=== PATIENT | female | born 1935 | race Caucasian/White ===

== ENCOUNTER 2017-01-22 12:06 | Inpatient (IN) | payer OTHER ==
--- NOTE | 2017-01-22 12:26 | PDOC ---
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 The son reports that the patient was not answering her front door today and the family became worried and brought her to the ED for further evaluation. The son states that similar episodes of the sort have happened in the past, usually around this time when the weather gets hotter. The patient has not ate breakfast this morning but did eat an early dinner last night. The patient denies chest pain, shortness of breath, headache and dizziness. Denies fever, chills, diarrhea and constipation. Denies dysuria, frequency, urgency and hematuria. Allergies: Aspirin, penicillin Past surgical history: None reported Social history: No alcohol, tobacco or drug use reported PMD - Dr. Len Tavarez <Braxton Slade - Last Filed: 01/22/17 13:56> - General History Source: Patient, Old Records Exam Limitations: No Limitations <Tomasa Pabon - Last Filed: 01/22/17 15:28> - General Chief Complaint: Weakness Stated Complaint: Weakness Time Seen by Provider: 01/22/17 12:25 Past History <Braxton Slade - Last Filed: 01/22/17 13:56> - Past Medical History Dementia: Yes GI Disorders: Yes (gerd) HTN: Yes - Psycho/Social/Smoking Cessation Hx Anxiety: No Suicidal Ideation: No Smoking History: Never smoked Have you smoked in the past 12 months: No Information on smoking cessation initiated: No Hx Alcohol Use: No Drug/Substance Use Hx: No Substance Use Type: None <Tomasa Pabon - Last Filed: 01/22/17 15:28> - Past Medical History Allergies/Adverse Reactions: Allergies Allergy/AdvReac Type Severity Reaction Status Date / Time aspirin Allergy Severe Hives Verified 01/22/17 12:16 Penicillins Allergy Hives Verified 01/22/17 12:16 Home Medications: Ambulatory Orders Losartan Potassium [Cozaar -] 25 mg PO DAILY 01/22/17 Meclizine HCl [Bonine] 25 mg PO DAILY 01/22/17 Omeprazole 40 mg PO DAILY 01/22/17 Review of Systems - Review of Systems Able to Perform ROS?: Yes Comments:: 01/22/17 12:40 GENERAL/CONSTITUTIONAL: (+) Generalized weakness. No fever or chills. HEAD, EYES, EARS, NOSE AND THROAT: No change in vision. No ear pain or discharge. No sore throat. CARDIOVASCULAR: No chest pain or shortness of breath RESPIRATORY: No cough, wheezing, or hemoptysis. GASTROINTESTINAL: (+) Nausea and vomiting. No diarrhea or constipation. GENITOURINARY: No dysuria, frequency, or change in urination. MUSCULOSKELETAL: No joint or muscle swelling or pain. No neck or back pain. SKIN: No rash NEUROLOGIC: No headache, vertigo, loss of consciousness, or change in strength/ sensation. ENDOCRINE: No increased thirst. No abnormal weight change HEMATOLOGIC/LYMPHATIC: No anemia, easy bleeding, or history of blood clots. ALLERGIC/IMMUNOLOGIC: No hives or skin allergy. <Braxton Slade - Last Filed: 01/22/17 13:56> *Physical Exam - Vital Signs Last Vital Signs Temp Pulse Resp BP Pulse Ox 83 20 207/97 91 L 01/22/17 12:16 01/22/17 12:16 01/22/17 12:16 01/22/17 12:16 - Physical Exam Comments: 01/22/17 12:42 GENERAL: Awake, alert, and fully oriented but mildly lethargic, in no acute distress HEAD: No signs of trauma, normocephalic, atraumatic EYES: PERRLA, EOMI, sclera anicteric, conjunctiva clear ENT: Auricles normal inspection, hearing grossly normal, nares patent, oropharynx clear without exudates. Moist mucosa NECK: Normal ROM, supple, no lymphadenopathy, JVD, or masses LUNGS: (+) Bibasilar crackles. No distress, speaks full sentences. HEART: Regular rate and rhythm, normal S1 and S2, no murmurs, rubs or gallops, peripheral pulses normal and equal bilaterally. ABDOMEN: Soft, nontender, normoactive bowel sounds. No guarding, no rebound. No masses EXTREMITIES: Normal inspection, Normal range of motion, no edema. No clubbing or cyanosis. NEUROLOGICAL: Cranial nerves II through XII grossly intact. Normal speech, normal gait, no focal sensorimotor deficits SKIN: Warm, Dry, normal turgor, no rashes or lesions noted. <Braxton Slade - Last Filed: 01/22/17 13:56> - Vital Signs Last Vital Signs Temp Pulse Resp BP Pulse Ox 83 20 207/97 91 L 01/22/17 12:16 01/22/17 12:16 01/22/17 12:16 01/22/17 12:16 <PepperTomasa - Last Filed: 01/22/17 15:28> ED Treatment Course - LABORATORY CBC & Chemistry Diagram: 01/22/17 12:43 01/22/17 12:43 - RADIOLOGY Radiograph Interpretation: 01/22/17 13:56 Chest X-Ray Reviewed by: Dr. Ben Power Impression: Limited examination with no acute intrathoracic abnormality seen. <Braxton Slade - Last Filed: 01/22/17 13:56> - LABORATORY CBC & Chemistry Diagram: 01/22/17 12:43 01/22/17 12:43 <Christina Pabonfany - Last Filed: 01/22/17 15:28> Medical Decision Making - Medical Decision Making 01/22/17 12:50 81-year-old female with history of hypertension, hyperlipidemia, CVA with no residual deficits who presents the emergency department with her son with complaints of nausea and generalized weakness found to be hypoxic to 91% on room air. Differential diagnosis includes but is not limited to: Pneumonia, UTI , intracranial process, electrolyte abnormality, dehydration, toxic/metabolic derangement, ACS. Plan: 1. Labs 2. EKG 3. IV fluids for hydration 4. Observe and reevaluate 01/22/17 15:24 Addendum: Labs were reviewed and are noted in the EMR. The WBC is elevated as is the lactate. CXR and CT abdomen and pelvis is negative. CT head is pending. The patient has been cultured and given Levaquin and vancomycin (she is PCN allergic). Will admit to medicine for IV antibiotics and monitoring of oxygen saturation and lactate levels. <Tomasa Pabon - Last Filed: 01/22/17 15:28> *DC/Admit/Observation/Transfer - Attestations Scribe Attestion: 01/22/17 12:42 Documentation prepared by Braxton Slade, acting as certified medical asst for Tomasa Pabon MD <Braxton Slade - Last Filed: 01/22/17 13:56> - Discharge Dispostion Admit: Yes - Attestations Physician Attestion: 01/22/17 12:52 I, Dr. Tomasa Pabon, attest that the scribes documentation that appears above has been prepared under my direction and personally reviewed by me in its entirety. I confirmed that the note above accurately reflects all work, treatment, procedures, and medical decision-making performed by me. <Tomasa Pabon - Last Filed: 01/22/17 15:28> Diagnosis at time of Disposition: Sepsis, Nausea and vomiting - Discharge Dispostion Condition at time of disposition: Stable - Referrals Referrals: Len Tavarez MD [Primary Care Provider] -
[2017-01-22] MEDS ORDERED: SODIUM CHLORIDE 1,000 ML IV STA ×2 (12:39→13:49)
[2017-01-22] MEDS ORDERED: ONDANSETRON 4 MG/2 ML VIAL ONE (12:52)
[2017-01-22] MEDS ORDERED: ONDANSETRON 4 MG/2 ML VIAL IVPUSH ONE (12:52)
[2017-01-22 12:55] LABS: BASOPHIL 0.2 % (0-2.0); EOSINOPHIL 0.2 % (0-4.5); MCH 29.9 pg (25.7-33.7); MCHC 32.9 g/dl (32.0-36.0); MEAN CELL VOLUME 90.9 fl (80-96); NEUTROPHILS 71.3 % (42.8-82.8); PLATELET COUNT 223 K/MM3 (134-434); RDW 12.9 % (11.6-15.6); WHITE BLOOD COUNT 10.2 K/mm3 (4.0-10.0)
[2017-01-22 13:05] LABS: VENOUS BLOOD GAS HCO3 23.4 meq/L (19-25); VENOUS PH 7.33 (7.32-7.42)
[2017-01-22 13:16] LABS: INR 1.06 (0.82-1.09); PROTHROMBIN TIME (PATIENT) 11.7 SEC (9.98-11.88)
[2017-01-22 13:18] LABS: ACTIVATED PTT 33.3 SECONDS (26.9-34.4)
[2017-01-22 13:23] LABS: ALBUMIN 3.8 g/dl (3.4-5.0); ANION GAP 11 (8-16); BILIRUBIN,TOTAL 0.6 mg/dL (0.2-1.0); CO2 23 mmol/L (21-32); CREATININE 0.9 mg/dL (0.55-1.02); GLUCOSE,RANDOM 165 mg/dL (74-106); SGPT/ALT 43 U/L (12-78); TOT PROT 7.8 g/dl (6.4-8.2)
[2017-01-22 13:26] LABS: URINE APPEARANCE CLEAR; URINE BILIRUBIN NEGATIVE (NEGATIVE); URINE BLOOD NEGATIVE (NEGATIVE); URINE COLOR STRAW; URINE GLUCOSE (UA) 2+ (NEGATIVE); URINE KETONE 1+ (NEGATIVE); URINE LEUK ESTERASE NEGATIVE (NEGATIVE); URINE NITRITE NEGATIVE (NEGATIVE); URINE UROBILINOGEN NEGATIVE E.U./dl (0.2-1.0)
[2017-01-22 13:27] LABS: ALK PHOS 134 U/L (45-117); TROPONIN I < 0.02 ng/ml (0.00-0.05); URINE PROTEIN 1+ (NEGATIVE)
[2017-01-22 13:28] LABS: SGOT/AST 36 U/L (15-37)
[2017-01-22 13:29] LABS: URINE BACTERIA RARE /hpf (NONE SEEN); URINE HYALINE CAST 3 /lpf; URINE MUCUS RARE; URINE RBC 1 /hpf (0-3); URINE WBC 1 /hpf (3-5)
[2017-01-22] MEDS ORDERED: VANCOMYCIN 1,000 MG in DEXTROSE 5%-WATER - 250 ML IVPB ONE (13:48)
[2017-01-22] MEDS ORDERED: LEVOFLOXACIN 750 MG IVPB 150 ML IVPB ONE ×2 (13:48→16:56)
[2017-01-22] MEDS ORDERED: VANCOMYCIN 1 GRAM (PRE-DOCKED) 250 ML IVPB ONE (14:47)
[2017-01-22] MEDS ORDERED: ACETAMINOPHEN 500 MG TABLET (FP) PO ONE (16:49)
[2017-01-22] MEDS ORDERED: ACETAMINOPHEN 325 MG TABLET (FP) ONE (16:55)
[2017-01-22] MEDS ORDERED: ASPIRIN 325 MG ENTERIC COATED TABLET (FP) PO ONE (17:00)
[2017-01-22] MEDS ORDERED: ASPIRIN 325 MG ENTERIC COATED TABLET (FP) PO SCH (17:00)
--- NOTE | 2017-01-22 17:08 | HP ---
CHIEF COMPLAINT: Altered mental status PCP: Dr. Len Tavarez HISTORY OF PRESENT ILLNESS: Patient is an 81 year old female wit gee PMHx of CVA with no residual weakness, HTN, GERD who was BIBA after being found by a friend with altered mental status associated with nausea and vomiting. As per patients daughter, her mother was feeling lightheaded and dizzy but did not fall down. However, when she was found, patient had urinated on herself for the first time. She also reports that these symptoms usually occur in the summer time when the weather is warm. Patient also reports feeling weak with a headache because she has not eaten anything today due to the nausea and vomiting. Patient's daughter reports her mothers AMS resolved and is back to baseline. Otherwise, patient denies fever, chills, chest pain, palpitations, shortness of breath, visual changes, diarrhea , hematuria, frequency, urgency. ER course was notable for: (1) IV fluids (2) Levaquin (3) Lactic Acid 2.8 Recent Travel: Denies PAST MEDICAL HISTORY: HTN, GERD, CVA PAST SURGICAL HISTORY: Denies Social History: Smoking: Denies Alcohol: Denies Drugs: Denies Family History: Non-contributory Allergies: Patient and family state no hives with Aspirin Penicillins Allergy (Verified 01/22/17 12:16) Hives HOME MEDICATIONS: Home Medications Medication Instructions Recorded Losartan Potassium [Cozaar -] 25 mg PO DAILY 01/22/17 Meclizine HCl [Bonine] 25 mg PO DAILY 01/22/17 Omeprazole 40 mg PO DAILY 01/22/17 REVIEW OF SYSTEMS CONSTITUTIONAL: generalized weakness Absent: fever, chills, diaphoresis, malaise, loss of appetite, weight change HEENT: Absent: rhinorrhea, nasal congestion, throat pain, throat swelling, difficulty swallowing, mouth swelling, ear pain, eye pain, visual changes CARDIOVASCULAR: lightheadedness Absent: chest pain, syncope, palpitations, irregular heart rate, peripheral edema RESPIRATORY: Absent: cough, shortness of breath, dyspnea with exertion, orthopnea, wheezing, stridor, hemoptysis GASTROINTESTINAL: nausea, vomiting Absent: abdominal pain, abdominal distension, diarrhea, constipation, melena, hematochezia GENITOURINARY: Absent: dysuria, frequency, urgency, hesitancy, hematuria, flank pain, genital pain MUSCULOSKELETAL: Absent: myalgia, arthralgia, joint swelling, back pain, neck pain SKIN: Absent: rash, itching, pallor HEMATOLOGIC/IMMUNOLOGIC: Absent: easy bleeding, easy bruising, lymphadenopathy, frequent infections ENDOCRINE: Absent: unexplained weight gain, unexplained weight loss, heat intolerance, cold intolerance NEUROLOGIC: headache, dizziness, unsteady gait, mental status changes, bladder incontinence Absent: focal weakness or paresthesias, seizure PSYCHIATRIC: Absent: anxiety, depression, suicidal or homicidal ideation, hallucinations. PHYSICAL EXAMINATION Vital Signs - 24 hr 01/22/17 01/22/17 01/22/17 15:30 15:59 16:02 Temperature 96.7 F L 97.4 F L Pulse Rate [ 82 Left Radial] Respiratory 18 Rate Blood Pressure 158/82 Blood Pressure 158/82 [Right Arm] O2 Sat by Pulse 98 Oximetry (%) GENERAL: Awake, alert, and fully oriented, in no acute distress. HEAD: Normal with no signs of trauma. EYES: Pupils equal, round and reactive to light, extraocular movements intact, sclera anicteric, conjunctiva clear. EARS, NOSE, THROAT: Moist mucous membranes. NECK: Supple without lymphadenopathy or JVD. No Bruits appreciated LUNGS: Breath sounds equal, clear to auscultation bilaterally. No wheezes, and no crackles. No accessory muscle use. HEART: Regular rate and rhythm, normal S1 and S2 without murmur, rub or gallop. ABDOMEN: Soft, nontender, not distended, normoactive bowel sounds, no guarding, no rebound, no masses. UPPER EXTREMITIES: No peripheral edema. LOWER EXTREMITIES: No calf tenderness. No peripheral edema. NEUROLOGICAL: Cranial nerves II-XII intact. Normal speech. Motor strength 5/5, sensory intact PSYCHIATRIC: Cooperative. Good eye contact. Appropriate mood and affect. SKIN: Warm, dry, normal turgor, no rashes or lesions noted, normal capillary refill. Laboratory Results - last 24 hr 01/22/17 01/22/17 01/22/17 12:43 12:43 12:43 WBC 10.2 H RBC 4.77 D Hgb 14.3 D Hct 43.3 D MCV 90.9 MCHC 32.9 RDW 12.9 Plt Count 223 D MPV 8.0 Neutrophils % 71.3 D Lymphocytes % 22.3 D Monocytes % 6.0 Eosinophils % 0.2 Basophils % 0.2 INR 1.06 PTT (Actin FS) 33.3 VBG pH POC VBG pCO2 POC VBG pO2 Mixed VBG HCO3 Sodium Potassium Chloride Carbon Dioxide Anion Gap BUN Creatinine Creat Clearance w eGFR Random Glucose Lactic Acid Calcium Total Bilirubin AST ALT Alkaline Phosphatase Creatine Kinase Troponin I B-Natriuretic Peptide Total Protein Albumin Lipase Urine Color Straw Urine Appearance Clear Urine pH 6.0 Urine Protein 1+ H Urine Glucose (UA) 2+ H Urine Ketones 1+ H Urine Blood Negative Urine Nitrite Negative Urine Bilirubin Negative Urine Urobilinogen Negative Ur Leukocyte Esterase Negative Urine RBC 1 Urine WBC 1 Ur Epithelial Cells Rare Urine Bacteria Rare Hyaline Casts 3 Urine Mucus Rare Blood Type Antibody Screen 01/22/17 01/22/17 01/22/17 12:43 12:43 12:43 WBC RBC Hgb Hct MCV MCHC RDW Plt Count MPV Neutrophils % Lymphocytes % Monocytes % Eosinophils % Basophils % INR PTT (Actin FS) VBG pH 7.33 POC VBG pCO2 46.2 POC VBG pO2 44.3 Mixed VBG HCO3 23.4 Sodium 143 Potassium 3.7 Chloride 109 H Carbon Dioxide 23 D Anion Gap 11 BUN 13 D Creatinine 0.9 D Creat Clearance w eGFR 59.80 Random Glucose 165 H D Lactic Acid 2.8 H* Calcium 10.0 Total Bilirubin 0.6 D AST 36 ALT 43 Alkaline Phosphatase 134 H D Creatine Kinase 79 Troponin I < 0.02 B-Natriuretic Peptide Total Protein 7.8 D Albumin 3.8 D Lipase 96 Urine Color Urine Appearance Urine pH Urine Protein Urine Glucose (UA) Urine Ketones Urine Blood Urine Nitrite Urine Bilirubin Urine Urobilinogen Ur Leukocyte Esterase Urine RBC Urine WBC Ur Epithelial Cells Urine Bacteria Hyaline Casts Urine Mucus Blood Type Antibody Screen 01/22/17 01/22/17 01/22/17 12:43 15:56 17:30 WBC RBC Hgb Hct MCV MCHC RDW Plt Count MPV Neutrophils % Lymphocytes % Monocytes % Eosinophils % Basophils % INR PTT (Actin FS) VBG pH POC VBG pCO2 POC VBG pO2 Mixed VBG HCO3 Sodium Potassium Chloride Carbon Dioxide Anion Gap BUN Creatinine Creat Clearance w eGFR Random Glucose Lactic Acid 1.9 Calcium Total Bilirubin AST ALT Alkaline Phosphatase Creatine Kinase Troponin I B-Natriuretic Peptide 117.09 Total Protein Albumin Lipase Urine Color Urine Appearance Urine pH Urine Protein Urine Glucose (UA) Urine Ketones Urine Blood Urine Nitrite Urine Bilirubin Urine Urobilinogen Ur Leukocyte Esterase Urine RBC Urine WBC Ur Epithelial Cells Urine Bacteria Hyaline Casts Urine Mucus Blood Type O NEGATIVE Antibody Screen Negative Chest X-ray (01/22/17): There are increased markings in lungs but no evidence of consolidation, heart failure or pleural effusion is seen. IMPRESSION: Limited examination with no acute intrathoracic abnormality seen. Abdominal CT (01/22/17): The liver, spleen, pancreas, adrenal glands and kidneys demonstrate no gross abnormalities. The gallbladder is clear. There is no evidence of intra-abdominal or retroperitoneal lymphadenopathy or fluid collections. There is no evidence of pneumoperitoneum, bowel obstruction or intra-abdominal abscess. There is no CT evidence of acute appendicitis. There is moderate diverticulosis of the sigmoid colon with no CT evidence of acute diverticulitis. Examination of the pelvis demonstrates no evidence of pelvic masses, fluid collections or lymphadenopathy. The uterus is retroverted with an apparent posterior fundal fibroid. There is no evidence of acute bony abnormalities. Scoliosis and degenerative arthritis of the lumbosacral spine is also noted. Head CT (01/22/17): 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 Otherwise normal noncontrast CT of the brain except for involutional and periventricular white matter changes. ASSESSMENT/PLAN: Patient is an 81 year old female with a PMHx of CVA (no residual weakness), HTN , and GERD who was brought in for Altered Mental status and admitted to rule out acute CVA. Acute Encephalopathy with Pre-syncopal episode -Possible secondary to hypoperfusion -Rule out CVA/TIA -Patient found to be confused and disoriented with one episode of bladder dysfunction -Symptoms resolved -Head CT negative for acute pathology -Loading dose ASA 324 given. ASA 81mg daily ordered -Plavix 75 mg ordered -Lipitor 40mg daily ordered -Neuro checks Q4H -Allow permissive HTN -Neurology consult placed -Echocardiogram ordered -Carotid doppler ordered -Speech and swallow evaluation ordered -Physical therapy ordered -Lipid panel ordered -A1C ordered -Will order MRI if symptoms reoccur Elevated Lactic Acidosis -Associated with Nausea and vomiting -Lactic acid found to be 2.8 and now 1.9 with IV fluids -Blood cultures and urine cultures were sent -Will continue to monitor HTN -Continue Losartan 25mg daily -Allow permissive HTN -Continue to monitor BP GERD -Protonix 40mg daily Hyperglycemia -ISS -BGM -A1C ordered F/E/N -On no maintenance fluids -Electrolytes wnl -Sodium controlled diet Prophylaxis -Heparin 5000 units SQ BID for DVT -Protonix 40mg daily for GI Disposition -Full code -Awaiting neuro consult. Admitted to telemetry Visit type - Emergency Visit Emergency Visit: Yes ED Registration Date: 01/22/17 Care time: The patient presented to the Emergency Department on the above date and was hospitalized for further evaluation of their emergent condition. - New Patient This patient is new to me today: Yes Date on this admission: 01/23/17 - Critical Care Critical Care patient: No
--- NOTE | 2017-01-22 17:33 | PN ---
Teaching Attending Note Name of Resident: Criss Urrutia ATTENDING PHYSICIAN STATEMENT I saw and evaluated the patient. I reviewed the resident's note and discussed the case with the resident. I agree with the resident's findings and plan as documented. HPI :Brought for evaluation by family members due to AMS and " not being herself " . She was found at home by a friend barely able to open the front door, having episodes of vomiting and being disoriented. She recalls using bathroom and feeling lightheaded and nauseous. Denies fall or trauma. As per daughter patients mental status is not back to normal. She last spoke to her mom the night before and she was fine . OBJECTIVE: Vital Signs Temperature 97.4 F L 01/22/17 16:02 Pulse Rate 82 01/22/17 16:02 Respiratory Rate 18 01/22/17 16:02 Blood Pressure 158/82 01/22/17 16:02 O2 Sat by Pulse Oximetry (%) 98 01/22/17 16:02 CBC, BMP 01/22/17 12:43 JUAREZ: Normal range of motion, supple without lymphadenopathy, JVD, or masses. LUNGS: Breath sounds equal, clear to auscultation bilaterally. No wheezes, and no crackles. No accessory muscle use. HEART: Regular rate and rhythm, normal S1 and S2 without murmur, rub or gallop. ABDOMEN: Soft, nontender, not distended, normoactive bowel sounds MUSCULOSKELETAL: Normal range of motion at all joints. UPPER EXTREMITIES: 2+ pulses, warm, well-perfused. No cyanosis. No clubbing. No peripheral edema. LOWER EXTREMITIES: 2+ pulses, warm, well-perfused. No calf tenderness. No peripheral edema. NEUROLOGICAL: Cranial nerves II-XII intact. Normal speech. Alert and oriented x 3 01/22/17 12:43 CT scan shows old right periventricular osteomalacia and diffuse microvascular changes CT abdomen - atelectasis b/l lower lungs, diverticulosis without diverticulitis ASSESSMENT AND PLAN: 1. Pre syncope, confusion, acute encephalopathy- clinical presentation suggestive of for vagal episode / transient hypotension which could have precipitated TIA/CVA. Patient has previous history of CVA .CT scan is negative for bleed. * Telemetry * neuro checks * ASA * neurology consult * if no improvement - MRI * carotid doppler 2. Elevated lactate level - diagnosed with sepsis in ED due to hypothermia and borderline elevated lactate level . Repeat lactate level is 1.9 . No source identified so far . Levaquin /Vanco was given and blood cultures were drawn. * will follow clinically and biochemically * follow blood cultures 3. HTN * will allow permissive HTN for now 4. DVT ppx * heparin SQ
[2017-01-22] MEDS ORDERED: ACETAMINOPHEN 650 MG/20.3 ML ORAL SOLUTION (CUPS) PO PRN (18:00)
[2017-01-22] MEDS ORDERED: ASPIRIN 325 MG ENTERIC COATED TABLET (FP) ONE (18:07)
[2017-01-22] MEDS: CLOPIDOGREL BISULFATE 75 MG TABLET (FP) PO SCH (21:31)
[2017-01-22] MEDS: HEPARIN NA (PORCINE) 5,000 UNITS/ML 1ML VIAL SQ SCH (21:34)
[2017-01-22] MEDS ORDERED: PANTOPRAZOLE 40 MG TABLET (FP) PO SCH (21:50)
[2017-01-22] MEDS ORDERED: diphenhydrAMINE HCL 25 MG CAPSULE (FP) PO ONE (21:50)
[2017-01-22] MEDS ORDERED: ATORVASTATIN CA 40 MG TABLET (FP) PO SCH (22:00)
[2017-01-23 00:11] VITALS: BMI 33.4
[2017-01-23] MEDS: PANTOPRAZOLE 40 MG TABLET (FP) PO SCH ×2 (00:55→10:53)
[2017-01-23] MEDS: INSULIN SLIDING SCALE (NOVOLOG) 1 VIAL SQ SCH ×2 (06:13→16:39)
[2017-01-23 08:03] LABS: MCH 30.3 pg (25.7-33.7); MCHC 33.2 g/dl (32.0-36.0); MEAN CELL VOLUME 91.2 fl (80-96); PLATELET COUNT 200 K/MM3 (134-434); RDW 12.9 % (11.6-15.6)
--- NOTE | 2017-01-23 08:28 | CON.NEURO ---
Consult - History of Present Illness History of Present Illness: transient episode of confusion 81 year old female, past medical hsitory of stroke( completely recovered) and she has encephalomalacia on ct head. also history of htn and GERD. she was brought to ed for confusion and at er she was alert and oriented x 3. Patient blood pressure was high. She was also vomiting and found to have high lactic acid and ? uti. Patient is back to [facility] and ct scan did not show any bleed and only old encephalomalacia. Her bp was 207/97. There was no seizures like activity or tongue bite . 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 Cardio/Vascular: Yes: HTN ...: No - Alcohol/Substance Use Hx Alcohol Use: No History of Substance Use: reports: None - Smoking History Smoking history: Never smoked Have you smoked in the past 12 months: No - Social History History of Recent Travel: No Home Medications - Allergies Allergies/Adverse Reactions: Allergies Allergy/AdvReac Type Severity Reaction Status Date / Time Penicillins Allergy Hives Verified 01/22/17 12:16 - Home Medications Home Medications: Ambulatory Orders Losartan Potassium [Cozaar -] 25 mg PO DAILY 01/22/17 Meclizine HCl [Bonine] 25 mg PO DAILY 01/22/17 Omeprazole 40 mg PO DAILY 01/22/17 Physical Exam-Neuro Vital Signs: Vital Signs Temperature 99.1 F 01/23/17 05:54 Pulse Rate 89 01/23/17 05:54 Respiratory Rate 18 01/23/17 05:54 Blood Pressure 154/78 01/23/17 05:54 O2 Sat by Pulse Oximetry (%) 96 01/22/17 21:00 Labs: CBC, BMP 01/23/17 07:00 INR, PTT INR 1.06 (0.82-1.09) 01/22/17 12:43 NIH Stroke Scale - Total Score NIH Stroke Scale Score: 0 Imaging - Results Cat Scan: Report Reviewed Assessment/Plan cc transient episode of confusion 81 year old female, past medical hsitory of stroke( completely recovered) and she has encephalomalacia on ct head. also history of htn and GERD. she was brought to ed for confusion and at er she was alert and oriented x 3. Patient blood pressure was high. She was also vomiting and found to have high lactic acid and ? uti. Patient is back to [facility] and ct scan did not show any bleed and only old encephalomalacia. Her bp was 207/97. There was no seizures like activity or tongue bite . She did urinated and she did have similar episode in past PAST MEDICAL HISTORY: HTN, GERD, CVA PAST SURGICAL HISTORY: none Social History: denies toxic habits Family History: Non-contributory Allergies: aspirin causes stomach upset Penicillins Allergy (Verified 01/22/17 12:16) Hives HOME MEDICATIONS: Home Medications Medication Instructions Recorded Losartan Potassium [Cozaar -] 25 mg PO DAILY 01/22/17 Meclizine HCl [Bonine] 25 mg PO DAILY 01/22/17 Omeprazole 40 mg PO DAILY 01/22/17 REVIEW OF SYSTEMS reviwed in chart Neurological Examination NIH score is 0 and able to swallow bp at admission 207/97 Alert oriented x 3, speech i snormal CN all intact moving all extremity sensation is normal ct head 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 Otherwise normal noncontrast CT of the brain except for involutional and periventricular white matter changes. ASSESSMENT/PLAN: transient confusion, given history of stroke and very high blood pressure at presentation it is possible that she sufferes from tia/ stroke. now back to baseline and ct was unremarkable except old encephalomalacia. Other possibility is subclinical seizures ( given encephalomalacia and incontinence ) Plan-- D/C aspirin, as only plavix should be enough and for stroke dual therapy is not recommended - no need for mri - continue statin - suggest to do do eeg - no need for antiepileptic medicatin at this time Thanking you so much Dalton Constantino MD
[2017-01-23 08:49] LABS: ANION GAP 8 (8-16); CALCIUM 9.7 mg/dL (8.5-10.1); CO2 25 mmol/L (21-32)
[2017-01-23 08:54] LABS: CHOLESTEROL 162 mg/dL (50-200); CREATININE 0.7 mg/dL (0.55-1.02); GLUCOSE,RANDOM 90 mg/dL (74-106); LDL CHOLESTEROL (ONLY SJRH) 105 mg/dL (5-100)
[2017-01-23] MEDS ORDERED: ASPIRIN COATED 81 MG TABLET.EC PO SCH ×2 (10:00)
[2017-01-23] MEDS ORDERED: PANTOPRAZOLE 40 MG TABLET (FP) PO SCH (10:00)
[2017-01-23] MEDS ORDERED: LOSARTAN POTASSIUM 25 MG TABLET PO SCH (10:00)
[2017-01-23 10:40] VITALS: TEMP 98.3
[2017-01-23] MEDS: HEPARIN NA (PORCINE) 5,000 UNITS/ML 1ML VIAL SQ SCH (10:53)
[2017-01-23] MEDS: CLOPIDOGREL BISULFATE 75 MG TABLET (FP) PO SCH (10:53)
--- NOTE | 2017-01-23 11:06 | CONSULT ---
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 As per patients daughter, her mother was feeling lightheaded and dizzy but did not fall down. However, when she was found, patient had urinated on herself for the first time. She also reports that these symptoms usually occur in the summer time when the weather is warm. Patient also reports feeling weak with a headache because she has not eaten anything today due to the nausea and vomiting. Patient's daughter reports her mothers AMS resolved and is back to baseline. Otherwise, patient denies fever, chills, chest pain, palpitations, shortness of breath, visual changes, diarrhea , hematuria, frequency, urgency. 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 Cardiovascular: Yes: HTN ...: No - Smoking History Smoking history: Never smoked Have you smoked in the past 12 months: No - Alcohol/Substance Use Hx Alcohol Use: No History of Substance Use: reports: None - Social History History of Recent Travel: No History - Admission Reason For Visit: SEPSIS,NAUSA, VOMITING - Diagnostics X-ray: Report Reviewed CT Scan: Report Reviewed (head (-)) Other: Report Reviewed (carotid US (-)) - General Mental Status: Alert and Oriented, Awake and Alert, Able to Follow Commands Attention: Intact Ability to Follow Directions: Excellent Head/Neck Control: WFL - Hearing Hearing: Normal Speech Evaluation - Communication Primary Language: MICRONESIAN Communication: Yes: Within Normal Limits, Language Barrier Oral Expression Ability: Yes: No Impairment - Speech Production Able to Make Needs Known: Yes: WNL Intelligibility: Yes: WNL - Speech Characteristics Voice Loudness: Normal Voice Pitch: Yes: Normal Voice Phonatory-based Quality: Yes: Normal Speech Pattern: Normal Speech Clarity: < 100% Nasal Resonance: Normal Articulation: Yes: Precise Rate of Speech: Intact - Language/Auditory Comprehension Follows: Yes: 2 Stage Simple Commands Observation: Able to respond to yes/no queries: Yes, Yes/No Confusion: No, Comprehends Conversational Speech: Yes - Language/Verbal Expression Able to Respond to Simple Queries: Yes: WNL Able to Communicate Wants and Needs: Yes: WNL Functional Communication Status: Yes: WNL - Memory/Perception adjunct faculty for medical terminology Memory: Yes: WNL Short Term Memory: Yes: WNL - Swallow Evaluation/Bedside Assessment Current Nutritional Intake: Regular, Thin Liquids Oral Secretions: Yes: WFL Dentition: Yes: Missing Teeth Facial Symmetry at Rest: Symmetrical (Possibly slight right facial at rest vs baseline) Against Resistance Opening: Normal Against Resistance Closing: Normal Pucker Lips: Normal Smile: Normal (Possibly slight right facial at rest vs baseline) Lingual Movement: Normal (Possibly slight deviation to vs baseline) Lingual Speed of Movement: Normal Lingual Movement Strgth Against Opposition: Normal Lingual Movement Characteristics: Normal Soft Palate Description: Normal Color, Normal Symmetry Hard Palate Description: Normal Color, Normal Symmetry Velopharyngeal Movement: Normal Laryngeal Elevation: WFL Laryngeal Movement: Able to Palpate Rate of Intake: WFL Bolus Size: WFL Labial Seal: WFL Chewing: WFL Oral Prep Time: WFL A-P Transit: WFL Pocketing: None Timing of Swallow: WFL Coughing/Throat Clear: No Change in Voice: No Recommendations - Speech Evaluation, Impression/Plan Impression: Speech production, language, cognition, swallowing function intact - Dysphagia Impressions/Plan Dysphagia Impressions: No Impairment *Silent aspiration: cannot be R/O at bedside - Recommendations Diet Consistency: Regular Liquids: Thin Liquids
--- NOTE | 2017-01-23 14:41 | EKG ---
Test Reason : Blood Pressure : / mmHG Vent. Rate : 068 BPM Atrial Rate : 068 BPM P-R Int : 154 ms QRS Dur : 108 ms QT Int : 406 ms P-R-T Axes : 000 193 132 degrees QTc Int : 431 ms NORMAL SINUS RHYTHM RIGHT SUPERIOR AXIS DEVIATION NONSPECIFIC T WAVE ABNORMALITY ABNORMAL ECG WHEN COMPARED WITH ECG OF 01-FEB-2014 17:37, T WAVE VARIATION Confirmed by VIRI VARELA MD ([id number]) on 01/23/2017 2:40:50 PM Referred By: Confirmed By:VIRI VARELA MD
[2017-01-23 14:49] VITALS: BP 129/65; PULSE 85
--- NOTE | 2017-01-23 16:07 | DS ---
Physical Exam: SUBJECTIVE: Patient seen and examined by me at bedside. No overnight events noted. Patient still complains of a headache but is much better than yesterday. Denies any visual changes or dizziness. Patient denies any fever, chills, nausea, vomiting, abdominal pain, chest pain, palpitations, shortness of breath , diarrhea. OBJECTIVE: Vital Signs Period Temp Pulse Resp BP Sys/Hoang Pulse Ox Last 24 Hr 97.7 F-99.1 F 74-89 18-20 129-159/65-90 96-98 PHYSICAL EXAM GENERAL: Awake, alert, and fully oriented, in no acute distress. LUNGS: Breath sounds equal, clear to auscultation bilaterally. No wheezes, and no crackles. No accessory muscle use. HEART: Regular rate and rhythm, normal S1 and S2 without murmur, rub or gallop. ABDOMEN: Soft, nontender, not distended, normoactive bowel sounds, no guarding, no rebound, no masses. LOWER EXTREMITIES: No calf tenderness. No peripheral edema. NEUROLOGICAL:Normal speech. Motor strength 5/5, sensory intact . No facial droop LABS Laboratory Results - last 24 hr 01/22/17 01/22/17 01/22/17 15:56 17:30 19:30 WBC RBC Hgb Hct MCV MCHC RDW Plt Count MPV Sodium Potassium Chloride Carbon Dioxide Anion Gap BUN Creatinine POC Glucometer Random Glucose Hemoglobin A1c % Lactic Acid 1.9 Calcium Troponin I 0.05 Triglycerides Cholesterol Total LDL Cholesterol HDL Cholesterol Blood Type O NEGATIVE Antibody Screen Negative 01/23/17 01/23/17 01/23/17 06:12 07:00 07:00 WBC 7.0 D RBC 4.02 Hgb 12.2 D Hct 36.7 D MCV 91.2 MCHC 33.2 RDW 12.9 Plt Count 200 MPV 8.0 Sodium 142 Potassium 3.6 Chloride 109 H Carbon Dioxide 25 Anion Gap 8 BUN 10 D Creatinine 0.7 D POC Glucometer 96 Random Glucose 90 D Hemoglobin A1c % Lactic Acid Calcium 9.7 Troponin I Triglycerides 108 D Cholesterol 162 D Total LDL Cholesterol 105 H HDL Cholesterol 47 D Blood Type Antibody Screen 01/23/17 07:00 WBC RBC Hgb Hct MCV MCHC RDW Plt Count MPV Sodium Potassium Chloride Carbon Dioxide Anion Gap BUN Creatinine POC Glucometer Random Glucose Hemoglobin A1c % 6.1 H Lactic Acid Calcium Troponin I Triglycerides Cholesterol Total LDL Cholesterol HDL Cholesterol Blood Type Antibody Screen IMAGES Chest X-ray (01/22/17): There are increased markings in lungs but no evidence of consolidation, heart failure or pleural effusion is seen. IMPRESSION: Limited examination with no acute intrathoracic abnormality seen. Abdominal CT (01/22/17): The liver, spleen, pancreas, adrenal glands and kidneys demonstrate no gross abnormalities. The gallbladder is clear. There is no evidence of intra-abdominal or retroperitoneal lymphadenopathy or fluid collections. There is no evidence of pneumoperitoneum, bowel obstruction or intra-abdominal abscess. There is no CT evidence of acute appendicitis. There is moderate diverticulosis of the sigmoid colon with no CT evidence of acute diverticulitis. Examination of the pelvis demonstrates no evidence of pelvic masses, fluid collections or lymphadenopathy. The uterus is retroverted with an apparent posterior fundal fibroid. There is no evidence of acute bony abnormalities. Scoliosis and degenerative arthritis of the lumbosacral spine is also noted. Head CT (01/22/17): 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 Otherwise normal noncontrast CT of the brain except for involutional and periventricular white matter changes. Carotid Doppler (01/22/17): Minimal intimal thickening at the common carotid bifurcation, bilaterally without evidence of hemodynamically significant stenosis HOSPITAL COURSE: Patient is an 81 year old female with a PMHx of CVA (no residual weakness), HTN , and GERD who was brought in for Altered Mental status, nausea, and vomiting. As per patients family, patient was found slumped on the couch, confused and noted to have urinated on herself. On initial encounter patient was found to be hypertensive with lactic acidosis and headaches. However, her AMS and confusion resolved. Patient was admitted to rule out TIA/CVA. Patient was placed on ASA, Lipitor, and Plavix. IV fluids were given and lactic acidosis resolve. Head CT was negative for acute pathology and carotid doppler was negative. Neurology consult placed who recommended EEG but no need for MRI due to patients resolution of symptoms. Echo shows normal LV function, impaired LV relaxation, trace MR. Neurology recommended for patient continue with Plavix and Lipitor. Lipitor and Plavix sent to pharmacy. Speech and swallow evaluation was done and patient may resume regular diet. PT was done and patient was able to ambulate 80 feet with assistance of Walker/cane. Patient told to follow up with neurologist and PCP within a week. Patient and patient' s family verbalized understanding. Patient was stable for discharged and will be taken home by her children. Date of Admission:01/22/17 Date of Discharge: 01/23/17 Minutes to complete discharge: 35 Discharge Summary Reason For Visit: SEPSIS,NAUSA, VOMITING Current Active Problems Nausea & vomiting (Acute) Sepsis (Acute) Syncope (Acute) TIA (transient ischemic attack) (Acute) Condition: Stable - Instructions Diet, Activity, Other Instructions: -You were admitted for Altered mental status and confusion due to possible stroke. However, your symptoms resolved quickly and the cat scan of the head was negative. -You will need to start taking a statin and plavix. You do not need to take Aspirin. These medications will be sent to your pharmacy. Please pick them up today -You will need to monitor your blood pressure and follow up with your primary care doctor this week. -You will need to follow up with the neurologist within a week for your EEG results t to check for any seizure activities -You should start using your walker for ambulation to avoid any falls -You may resume your regular diet and daily activities -Stay hydrated and avoid the heat Referrals: Dalton Constantino MD [Staff Physician] - Len Tavarez MD [Primary Care Provider] - Disposition: HOME - Home Medications Comprehensive Discharge Medication List: Ambulatory Orders Losartan Potassium [Cozaar -] 25 mg PO DAILY 01/22/17 Meclizine HCl [Bonine] 25 mg PO DAILY 01/22/17 Omeprazole 40 mg PO DAILY 01/22/17 Atorvastatin Ca [Lipitor] 40 mg PO HS #14 tablet 01/23/17 Clopidogrel Bisulfate [Plavix -] 75 mg PO DAILY #14 tablet 01/23/17 This patient is new to me today: No Emergency Visit: Yes ED Registration Date: 01/22/17 Care time: The patient presented to the Emergency Department on the above date and was hospitalized for further evaluation of their emergent condition. Critical Care patient: No - Discharge Referral Referred to [facility] Med P.C.: No
--- NOTE | 2017-01-23 16:25 | PN ---
Teaching Attending Note Name of Resident: Criss Urrutia ATTENDING PHYSICIAN STATEMENT I saw and evaluated the patient. I reviewed the resident's note and discussed the case with the resident. I agree with the resident's findings and plan as documented. SUBJECTIVE: No complaints. OBJECTIVE: Vital Signs Period Temp Pulse Resp BP Sys/Hoang Pulse Ox Last 24 Hr 97.4 F-99.1 F 74-89 18-20 129-159/65-90 96-98 HEART: S1S2, RRR LUNGS: Clear ABDOMEN: Obese, soft, non-tender, non-distended, normal BS EXTREMITIES: No edema ASSESSMENT AND PLAN: This is an 81 year old woman with a history of CVA, HTN, GERD who presented to the ER with confusion, headache, dizziness, nausea and vomiting. 1. Probable hypertensive encephalopathy, possible seizure - Improved - No evidence of acute CVA - Carotid dopplers show no hemodynamically significant stenosis - Echo shows normal LV function, impaired LV relaxation, trace MR - Continue Plavix, Lipitor, Cozaar - EEG pending 2. Lactic acidemia - Resolved 3. HTN - Continue Cozaar 4. GERD - Continue Protonix 5. History of CVA - Continue Plavix, Lipitor 6. Disposition - Ok for discharge home to follow up with PCP
== END 2017-01-23 18:34 | disposition home or self-care (01) | DRG 78 ==
LOC: JER 12:06 → JERBED 15:28 → J6S 19:00
PROVIDERS: ADMIT Internal Medicine; ATTEND Internal Medicine
DX: I67.4 Hypertensive encephalopathy (principal); E87.2 Acidosis; J98.11 Atelectasis; I10 Essential (primary) hypertension; K21.9 Gastro-esophageal reflux disease without esophagitis; Z86.73 Personal history of transient ischemic attack (TIA), and cerebral infarction without residual deficits; F03.90 Unspecified dementia, unspecified severity, without behavioral disturbance, psychotic disturbance, mood disturbance, and anxiety; R32 Unspecified urinary incontinence; R26.81 Unsteadiness on feet; R73.9 Hyperglycemia, unspecified; R68.0 Hypothermia, not associated with low environmental temperature; R09.02 Hypoxemia; R11.2 Nausea with vomiting, unspecified; R41.82 Altered mental status, unspecified
CPT/HCPCS: 36415; 70450-TC; 71010-TC; 74176-TC; 80048; 80053; 80061; 81003; 81015; 82550; 82803; 83036; 83605; 83690; 83721; 83880; 84484; 85025; 85027; 85610; 85730; 86850; 86900; 86901; 87040; 87086; 93005; 93010; 93306-TC; 93880-TC; 95816; 97116-GP; 97161-GP; 99285-25; J1644

== ENCOUNTER 2018-12-17 06:14 | Inpatient (IN) | payer OTHER ==
[2018-12-09 12:34] VITALS: BMI 31.0
[2018-12-17] MEDS ORDERED: TRANEXAMIC ACID 1000 MG/10 ML VIAL IVPUSH ONE (07:24)
[2018-12-17] MEDS ORDERED: CEFAZOLIN 1 GM/D5W 1 GM/50 ML BAG IVPB ONE (07:24)
[2018-12-17] MEDS ORDERED: CELECOXIB 200 MG CAPSULE PO ONE ×2 (07:24→07:35)
[2018-12-17] MEDS ORDERED: GABAPENTIN 300 MG CAPSULE (FP) PO ONE ×2 (07:24→07:30)
--- NOTE | 2018-12-17 07:59 | HP ---
[facility] - Chief Complaint Chief Complaint: right knee pain - Past Medical History Allergies/Adverse Reactions: Allergies Allergy/AdvReac Type Severity Reaction Status Date / Time Penicillins Allergy Severe Hives Verified 12/17/18 07:34 QUALITY CONTROL AUDITOR: Yes: CVA Cardiovascular: Yes: HTN - Current Medications Current Medications: Home Medications Medication Instructions Recorded Omeprazole 40 mg PO DAILY 01/22/17 Amlodipine Besylate 10 mg PO DAILY 12/05/18 Cetirizine HCl [Zyrtec -] 10 mg PO DAILY 12/05/18 Metoprolol Succinate 100 mg PO BID 12/05/18 Satellite Physical Exam - Physical Examination Vital Signs: Vital Signs Period Temp Pulse Resp BP Sys/Hoang Pulse Ox Last 24 Hr 97.4 F 76 - 189/87 96 General Appearance: Well Nourished, Well Developed, Alert & Oriented x3 ENT: Clear Lung: Normal air movement Heart: Regular rate & rhythm Extremities: Other (right knee- + swelling, + ttp, decr rom, nvi, xrays show grade 4 tricompartmental djd) Neurological: Intact, Alert, Oriented Satellite Impression/Plan - Impression/Plan Impression: right knee djd Operative Procedure: right gely tkr Date to be Performed: 12/17/18
[2018-12-17] MEDS ORDERED: ceFAZolin SODIUM 1 GM VIAL ONE ×2 (08:27→09:55)
[2018-12-17] MEDS ORDERED: BUPIVACAINE HCL/PF (5 MG/ML) 30 ML VIAL IJ ONE (08:30)
[2018-12-17] MEDS ORDERED: BUPIVACAINE LIPOSOME/PF (EXPAREL) 266 MG/20 ML VIAL ONE (08:30)
[2018-12-17] MEDS ORDERED: MIDAZOLAM HCL 2 MG/2 ML SINGLE DOSE VIAL ONE ×2 (08:30→09:55)
[2018-12-17] MEDS ORDERED: SODIUM CHLORIDE 0.9% P/F 10 ML VIAL IJ ONE (08:31)
[2018-12-17] MEDS ORDERED: ceFAZolin SODIUM 1 GM VIAL IVPB ONE (09:40)
[2018-12-17] MEDS ORDERED: DEXAMETHASONE SOD PHOSPHATE 4 MG/1 ML VIAL ONE (09:55)
[2018-12-17] MEDS ORDERED: TRANEXAMIC ACID 1000 MG/10 ML VIAL ONE (09:55)
[2018-12-17] MEDS ORDERED: ONDANSETRON 4 MG/2 ML VIAL ONE (09:55)
[2018-12-17] MEDS ORDERED: MAG HYDROX/AL HYDROX/SIMETH 30 ML UNIT-DOSE CUP PO PRN (09:59)
[2018-12-17] MEDS ORDERED: ONDANSETRON 4 MG/2 ML VIAL IVPUSH PRN ×2 (09:59→11:53)
[2018-12-17] MEDS ORDERED: MAGNESIUM HYDROX 2400MG/30ML ORAL SUSPENSION 30 ML CUP PO PRN (09:59)
[2018-12-17] MEDS ORDERED: LACTATED RINGERS SOLUTION 1,000 ML IV SCH (10:00)
[2018-12-17] MEDS ORDERED: PATIENT'S OWN MEDICATION (NON-FORMULARY) (Cetirizine Hcl 10 MG) PO SCH (10:00)
[2018-12-17] MEDS ORDERED: PATIENT'S OWN MEDICATION (NON-FORMULARY) (Omeprazole 40 MG) PO SCH (10:00)
[2018-12-17] MEDS ORDERED: VANCOMYCIN 1,000 MG VIAL (RESTRICTED TO ID ONLY) ONE (11:09)
[2018-12-17] MEDS ORDERED: VANCOMYCIN 1,000 MG VIAL (RESTRICTED TO ID ONLY) IVPB ONE (11:10)
--- NOTE | 2018-12-17 11:35 | OP ---
Operative Note - Note: Operative Date: 12/17/18 (raymond) Pre-Operative Diagnosis: right knee djd Operation: right gely tkr Post-Operative Diagnosis: Same as Pre-op Surgeon: Moe Vigil Printer Slotter Feeder: Lalit Romero Anesthesiologist/MOTEL FRONT DESK ATTENDANT: Jose Roberto Restrepo Anesthesia: Spinal, Local Specimens Removed: bone fragments Estimated Blood Loss (mls): 100 Operative Report Dictated: Yes
[2018-12-17] MEDS ORDERED: PROMETHAZINE HCL 25 MG/1 ML VIAL IVPUSH PRN (11:53)
[2018-12-17] MEDS ORDERED: ACETAMINOPHEN 325 MG TABLET (FP) PO SCH (12:00)
--- NOTE | 2018-12-17 17:00 | SPEC ---
DATE OF OPERATION: 12/17/2018 PREOPERATIVE DIAGNOSIS: Degenerative joint disease, right knee. POSTOPERATIVE DIAGNOSIS: Degenerative joint disease, right knee. PROCEDURE: Right total knee replacement with robotic-assisted navigation (MAKOplasty). SURGICAL ATTENDING: Moe Vigil M.D. DIRECTOR AUTOMOTIVE: Moni Baron ANESTHESIA: Regional and spinal. CLOSURE: A cemented Triathlon knee system with a 4 femur, 3 tibia, 9 polyethylene, 32 patella, number 1 Vicryl fascia, 0 and 2-0 subcutaneous, 3-0 Monocryl subcuticular with skin glue for skin, 4-0 undyed Vicryl for pin sites. ESTIMATED BLOOD LOSS: Negligible. COMPLICATIONS: None. CONDITION: To recovery room in stable condition. DESCRIPTION OF OPERATIVE PROCEDURE: Patient was taken to the operating room on December 17, 2018. Regional and general anesthesia was administered by the anesthesiologist. IV Kefzol and TXA were administered by the anesthesiologist. Well-padded pneumatic tourniquet was placed on the proximal thigh. The right lower extremity was prepped and draped in the usual sterile fashion. The leg was exsanguinated with an Esmarch bandage, and tourniquet was inflated to 275 mmHg. A 12 to 15-cm longitudinal midline incision was incised while centered over the patella. The dissection was carried down to the level of the extensor mechanism with sufficient flaps made to adequately perform the procedure. A medial parapatellar arthrotomy was then performed. We made a cuff of tissue on the patella for later closure. The patella was inverted, the knee was flexed up. The fat pad was excised. The subperiosteal dissection was on the anteromedial proximal tibia around towards the direction of the MCL. The ACL and the PCL were transected and debrided. The meniscal remnants of the medial and lateral meniscus were debrided and removed. This allowed the knee to be able to "be brought forward." The checkpoints were malleted into the tibia and into the femur. Two threaded pins were drilled anteroposteriorly proximal to the knee through the previous incision, through the anterior cortex, then just engaging the posterior cortex. To these pins was assembled the femoral navigation array. One handbreadth below the tibial tubercle, 2 stab incisions were used to drill 2 threaded pins in parallel fashion into the tibia, again through the anterior cortex and just engaging the posterior cortex. To these pins was fastened the tibial arrays. The knee was then registered with the navigation device with center of rotation of the hip, medial and lateral malleoli, both checkpoints, and multiple points on both the femur and the tibia to ensure excellent registration. The navigation device was directed off the "top of the bubbles" on both the femur and the tibia. The navigation passed within less than 0.5 mm to plan. The knee was then thoroughly inspected to remove all osteophytes both medially, laterally, and on the femur and the tibia, and whatever osteophytes were available for dissection. The knee was then taken to extension and to flexion, and stressed in both varus and valgus to assess flexion gaps. The virtual position of the components on the navigation device were then manipulated to optimize the position and to ensure equal gaps in both flexion and extension, and both medially and laterally. The robot was then brought into the field and was registered. The cuts were then made both on the femur and on the tibia as to plan. All osteophytes posteriorly were then removed as well. The gaps were then measured again in flexion and extension to be equal in both flexion and extension and medial and laterally. The femoral notch was then made, as we were doing a posterior stabilizing component, with the appropriate sized box. Trial reduction of the femur achieved excellent [id number] fit. A tibial baseplate of appropriate polyethylene thickness was "floated in the knee." It was ensured to be in the excellent position by navigation devices and was pinned in place. The knee was taken through a range of motion, and found to have excellent stability throughout flexion and extension. The patella was calibrated for thickness and osteotomized down to the appropriate level. The appropriate lollipop was used to drill the lug holes in the patella and the trial button was applied. The knee was taken through a range of motion and found to have excellent tracking of the patella, and patella from full extension to full flexion. Trial components were removed, the keel was punched and drilled, and a sclerotic bone on the tibia was drilled to help with cement interdigitation. The knee was thoroughly irrigated with the pulse antibiotic tongue stitcher. The real components were then cemented in using monitored arrangement cement techniques with antibiotic cement, and pressurization and extension. After the cement was hardened, the knee was thoroughly inspected to remove any extra cement. The real polyethylene component was then clipped into place. Range of motion, stability, and tracking were as described earlier. The checkpoints and the pins were removed. The knee was thoroughly irrigated with antibiotic irrigation. Vancomycin powder was placed into the knee for antibiotic prophylaxis. The medial parapatellar arthrotomy was then closed using number 1 Vicryl interrupted suture. After closure of the deep layer, the knee was taken through a range of motion, and found to have excellent stability of the patella with no dislocation and no undue tension on the repair. The subcutaneous was pulse antibiotic irrigated, and was then closed with 2-0 Vicryl, 3-0 Monocryl subcuticular with the skin glue for the skin. The distal tibial pin site was irrigated thoroughly as well and then closed with 4-0 undyed Vicryl. A sterile Aquacel dressing was applied, followed by a Gross dressing. Tourniquet was deflated. Total tourniquet time was approximately 75 minutes. No complications. Patient was awakened from anesthesia and transferred to recovery room in stable condition. Postoperative x-rays revealed excellent position of the components. Monse [id number]
[2018-12-17] MEDS: CEFAZOLIN 1 GM/D5W 1 GM/50 ML BAG IVPB SCH (17:16)
[2018-12-17] MEDS: ACETAMINOPHEN 325 MG TABLET (FP) PO SCH (20:28)
[2018-12-17] MEDS: METOPROLOL TARTRATE 50 MG TABLET (FP) PO SCH (21:03)
[2018-12-17] MEDS: oxyCODONE HCL 5 MG TABLET PO PRN (21:04)
[2018-12-17] MEDS: SENNOSIDES/DOCUSATE COMBO (SENNA PLUS) TABLET (UD) PO SCH (21:05)
[2018-12-18] MEDS: CEFAZOLIN 1 GM/D5W 1 GM/50 ML BAG IVPB SCH (01:09)
[2018-12-18] MEDS: oxyCODONE HCL 5 MG TABLET PO PRN ×3 (01:59→22:00)
[2018-12-18] MEDS: ACETAMINOPHEN 325 MG TABLET (FP) PO SCH ×4 (03:43→22:00)
--- NOTE | 2018-12-18 08:24 | PN ---
Progress Note (short form) - Note Progress Note: Ortho Pt seen and examined s/p right gely tkr pod #1 Selected Entries 12/18/18 05:00 Temperature 97.8 F Pulse Rate 71 Respiratory 19 Rate Blood Pressure 139/63 Laboratory Tests 12/18/18 07:40 WBC Pending Hgb Pending Hct Pending Plt Count Pending dressing c/d/i, calf soft, nt rom 0-30, nvi a/p PT dvt ppx pain control d/c planning for tomorrow
[2018-12-18] MEDS: ASPIRIN 325 MG TABLET PO SCH (08:25)
[2018-12-18 08:51] LABS: HEMATOCRIT 34.8 % (32.4-45.2); HEMOGLOBIN 11.5 GM/dl (10.7-15.3); MCH 30.8 pg (25.7-33.7); MCHC 33.2 g/dl (32.0-36.0); MEAN CELL VOLUME 92.9 fl (80-96); MEAN PLT VOLUME 8.6 fl (7.5-11.1); PLATELET COUNT 232 K/MM3 (134-434); RBC 3.74 M/mm3 (3.60-5.2); RDW 12.3 % (11.6-15.6)
[2018-12-18] MEDS: MULTIVITAMINS (DAILY MVI) TABLET (FP) PO SCH (10:00)
[2018-12-18] MEDS: METOPROLOL TARTRATE 50 MG TABLET (FP) PO SCH ×2 (10:00→21:59)
[2018-12-18] MEDS: amLODIPine BESYLATE 10 MG TABLET (FP) PO SCH (10:00)
[2018-12-18] MEDS: SENNOSIDES/DOCUSATE COMBO (SENNA PLUS) TABLET (UD) PO SCH ×2 (10:00→21:59)
[2018-12-18] MEDS: PANTOPRAZOLE 40 MG TABLET (FP) PO SCH (10:01)
[2018-12-18] MEDS: LORATADINE 10 MG TABLET PO SCH (10:01)
--- NOTE | 2018-12-18 12:07 | PN ---
Progress Note (short form) - Note Progress Note: ANESTHESIA POSTOP 83 YO FEMALE POD#1 S/P R TKA, spinal anesthesia, PNB Patient sitting in chair. Eating. Comfortable. Slept ok. VSS, Afebrile Continue current care. Encouraged IS and PT, No anesthetic complications
--- NOTE | 2018-12-18 15:50 | PATH ---
Surgical Pathology Report Patient Name: ALEJANDRO SMALLWOOD Med. Rec. #: [id number] /Age/Gender: 1935 (Age: 83) / F Account: [id number] Location: [facility] Taken: 12/17/2018 Received: 12/17/2018 Reported: 12/18/2018 Physicians: Moe Vigil M.D. Specimen(s) Received RIGHT KNEE BONES Clinical History Right knee osteoarthritis Final Diagnosis KNEE BONES, RIGHT, TOTAL KNEE REPLACEMENT: DEGENERATIVE JOINT DISEASE. Electronically Signed Farnaz Gómez M.D. Gross Description Received in formalin, labeled "right knee bones" are multiple portions of bone partially surfaced by cartilage along with portions of fibrocollagenous and fibroadipose tissue having an aggregate of 12.8 x 11 x 1.7 cm. The articular/condylar surfaces appear granular and show areas of eburnation. Record Press Tender sections are submitted in one cassette after decalcification. AE/12/17/2018 ebram/12/17/2018
[2018-12-19] MEDS: oxyCODONE HCL 5 MG TABLET PO PRN ×5 (00:55→22:09)
[2018-12-19] MEDS: ACETAMINOPHEN 325 MG TABLET (FP) PO SCH ×5 (04:35→22:10)
[2018-12-19] MEDS: ASPIRIN 325 MG TABLET PO SCH (08:00)
--- NOTE | 2018-12-19 08:30 | PN ---
Progress Note (short form) - Note Progress Note: Ortho Pt seen and examined s/p right gely tkr pod #2 Selected Entries 12/19/18 06:00 Temperature 98.0 F Pulse Rate 76 Respiratory 18 Rate Blood Pressure 143/68 Laboratory Tests 12/18/18 07:40 WBC 9.0 Hgb 11.5 Hct 34.8 Plt Count 232 dressing c/d/i, calf soft, nt rom 0-50, nvi a/p PT dvt ppx pain control d/c planning for tomorrow
[2018-12-19 08:34] LABS: HEMOGLOBIN 10.6 GM/dl (10.7-15.3); MCH 30.1 pg (25.7-33.7); MCHC 32.2 g/dl (32.0-36.0); MEAN CELL VOLUME 93.7 fl (80-96); MEAN PLT VOLUME 8.6 fl (7.5-11.1); PLATELET COUNT 209 K/MM3 (134-434); RBC 3.52 M/mm3 (3.60-5.2); RDW 12.3 % (11.6-15.6); WHITE BLOOD COUNT 9.4 K/mm3 (4.0-10.8)
[2018-12-19] MEDS: METOPROLOL TARTRATE 50 MG TABLET (FP) PO SCH ×2 (09:50→22:10)
[2018-12-19] MEDS: LORATADINE 10 MG TABLET PO SCH (09:50)
[2018-12-19] MEDS: amLODIPine BESYLATE 10 MG TABLET (FP) PO SCH (09:51)
[2018-12-19] MEDS: SENNOSIDES/DOCUSATE COMBO (SENNA PLUS) TABLET (UD) PO SCH ×3 (09:51→22:10)
[2018-12-19] MEDS: MULTIVITAMINS (DAILY MVI) TABLET (FP) PO SCH ×2 (09:52→09:53)
[2018-12-19] MEDS: PANTOPRAZOLE 40 MG TABLET (FP) PO SCH (09:52)
[2018-12-20] MEDS: oxyCODONE HCL 5 MG TABLET PO PRN ×2 (01:36→09:27)
[2018-12-20] MEDS: ACETAMINOPHEN 325 MG TABLET (FP) PO SCH ×2 (01:36→08:37)
[2018-12-20 06:50] VITALS: BP 142/77; PULSE 83; TEMP 98.3
[2018-12-20] MEDS: ASPIRIN 325 MG TABLET PO SCH (08:37)
[2018-12-20] MEDS: METOPROLOL TARTRATE 50 MG TABLET (FP) PO SCH (09:26)
[2018-12-20] MEDS: amLODIPine BESYLATE 10 MG TABLET (FP) PO SCH (09:26)
[2018-12-20] MEDS: PANTOPRAZOLE 40 MG TABLET (FP) PO SCH (09:26)
[2018-12-20] MEDS: MULTIVITAMINS (DAILY MVI) TABLET (FP) PO SCH (09:26)
[2018-12-20] MEDS: LORATADINE 10 MG TABLET PO SCH (09:26)
[2018-12-20] MEDS: SENNOSIDES/DOCUSATE COMBO (SENNA PLUS) TABLET (UD) PO SCH (09:27)
--- NOTE | 2018-12-20 12:15 | PN ---
Progress Note (short form) - Note Progress Note: Ortho Pt seen and examined s/p right gely tkr pod #3 Selected Entries 12/20/18 06:00 Temperature 98.3 F Pulse Rate 83 Respiratory 18 Rate Blood Pressure 142/77 Laboratory Tests 12/19/18 07:10 WBC 9.4 Hgb 10.6 L Hct 33.0 Plt Count 209 dressing c/d/i, calf soft, nt rom 0-90, nvi a/p PT dvt ppx pain control d/c home today f/u in 1 week
--- NOTE | 2018-12-20 12:16 | DS ---
Physical Examination Vital Signs: Vital Signs Temperature 98.3 F 12/20/18 06:00 Pulse Rate 83 12/20/18 06:00 Respiratory Rate 16 12/20/18 08:51 Blood Pressure 142/77 12/20/18 06:00 O2 Sat by Pulse Oximetry (%) 94 L 12/20/18 08:51 Labs: CBC, BMP 12/19/18 07:10 Discharge Summary Reason For Visit: OSTEOARTHRITIS Procedures: Principal: right tkr Hospital Course: admitted for elective right gely tkr, uneventful post-op, stable for d/c Condition: Good - Instructions Diet, Activity, Other Instructions: Post-op Instructions-Total Knee Replacement Call the office for a follow-up appointment in 1 week - [phone] Aspirin 325mg daily for 6 weeks. Pain medication was sent into your pharmacy. Apply Graduated Compression Stockings (TEDs) to both lower extremities- remove daily for hygiene ONLY Apply Sequential Compression Device (SCDs) to both Lower extremities remove for PT and hygiene ONLY Apply cold packs to affected area for 15 minutes every 2 hours. Physical Therapist will come to your home for the first 5 days. You will be set up with outpatient PT at your first post-operative visit. Patient may ambulate as tolerated-encourage self care (at least every 2-3 hours while awake) with walker or cane Maintain Aquacel (waterproof) dressing to operative wound (will be removed by surgeon at first office visit) Shower with Aquacel dressing in place-if Aquacel integrity compromised, remove and apply dry sterile dressing and notify Orthopedist. DO NOT SHOWER unless Orthopedists approves without Aquacel dressing CONTACT THE OFFICE FOR ANY CHANGE IN YOUR CONDITION (for example-fever greater than 102 degrees, excessive bleeding from operative site, purulent drainage, severe swelling or pain) GO TO THE EMERGENCY ROOM IF THERE IS A MEDICAL EMERGENCY Knee Precautions: * Keep a rolled towel under affected heel while in bed or chair (to keep knee in extension) * Keep affected leg elevated except during mealtimes * DO NOT PLACE PILLOW UNDER AFFECTED KNEE * If you have any questions, please do not hesitate to call the office - [phone]. Referrals: Moe Vigil MD [Staff Physician] - Disposition: [facility]/HOME HEALTH CARE - Home Medications Comprehensive Discharge Medication List: Ambulatory Orders Omeprazole 40 mg PO DAILY 01/22/17 Amlodipine Besylate 10 mg PO DAILY 12/05/18 Cetirizine HCl [Zyrtec -] 10 mg PO DAILY 12/05/18 Metoprolol Succinate 100 mg PO BID 12/05/18 Aspirin [ASA -] 325 mg PO DAILY@0800 tablet 12/17/18 Oxycodone HCl/Acetaminophen [Percocet 5-325 mg Tablet -] 1 - 2 tab PO Q6H #50 tab MDD 8 12/17/18
== END 2018-12-20 16:00 | disposition home health service (06) | DRG 470 ==
LOC: FM/S 06:14
PROVIDERS: ADMIT Orthopaedic Surgery; ATTEND Orthopaedic Surgery
PROC: 8E0Y0CZ Robotic Assisted Procedure of Lower Extremity, Open Approach (ICD-10-PCS; 2018-12-17)
PROC: 0SRC0J9 Replacement of Right Knee Joint with Synthetic Substitute, Cemented, Open Approach (ICD-10-PCS; principal; 2018-12-17 10:13)
DX: M17.11 Unilateral primary osteoarthritis, right knee (principal); I10 Essential (primary) hypertension; Z86.73 Personal history of transient ischemic attack (TIA), and cerebral infarction without residual deficits
CPT/HCPCS: 36415; 73560-TC-RT-FY; 85027; 88304-TC; 88311-TC; 94760; 97116-GP; 97163-GP